=== PATIENT | male | born 1990 | race Caucasian/White ===

== ENCOUNTER 2017-01-20 18:21 | Emergency (ER) | payer OTHER ==
[2017-01-20 18:29] VITALS: BP 135/77; PULSE 74; TEMP 97.4; BMI 18.6
--- NOTE | 2017-01-20 19:59 | PDOC ---
History of Present Illness - General Chief Complaint: Psychiatric Stated Complaint: PANIC ATTACK Time Seen by Provider: 01/20/17 18:48 History Source: Patient Exam Limitations: No Limitations - History of Present Illness Initial Comments: PMD: Dr. Minnie Walker [phone] Pmhx: Asthma ("since I was born"/ albuterol inhaler) Allergies: NKDA Illicit drug use: Marijuana: last used a few minutes prior to yesterday's anxiety attack.) 26-year-old male with a history of asthma presents to the emergency department complaining of having two anxiety attacks since last week. Patient states at approximately 2 AM this morning, he was watching TV and "smoking a joint" (marijuana)when he decided to go to bed. Within 5 minutes after his marijuana use, he noticed that he was breathing rapidly. This "lasted no more than 2 minutes". The patient says he consciously slow down his breathing and took deeper breaths which subsided his anxiety attack. Similar episode happen 5 days ago. Again, within minutes after smoking now on a, he noticed his rapid breathing. This lasted for 5 minutes. With slowing down his breathing and breathing deeper, he noticed he was in control and his anxiety subsided. Patient states after breathing rapidly, he started experiencing tingling sensation around his lips and slight dizziness which went away when he slowed down his breathing. Patient adamantly denies being suicidal or homicidal. He does not have any suicidal ideation nor does he have a plan. Patient states he comes from a loving home with loving parents, family and friends alike. Maurice is also here because of a numbing sensation to his left index finger. He states he is able to feel his finger with excellent motor and sensitivity but it occurs when he is on his keyboard for a prolonged period of time. He denies any injuries. He claims he is often on his keyboard making music. Timing/Duration: yesterday Associated Symptoms: anxiety Past History - Past Medical History Allergies/Adverse Reactions: Allergies No Known Allergies Allergy (Verified 01/20/17 18:29) Home Medications: Ambulatory Orders NK [No Known Home Medication] 01/20/17 - Social History Smoking Status: Never smoked *Review of Systems - Review of Systems Able to Perform ROS?: Yes Comments:: 01/20/17 19:58 CONSTITUTIONAL: Absent: fever, chills, diaphoresis, generalized weakness, malaise, loss of appetite HEENT: Absent: rhinorrhea, nasal congestion, throat pain, throat swelling, difficulty swallowing, mouth swelling, ear pain, eye pain, visual Changes CARDIOVASCULAR: Absent: chest pain, loss of consciousness, palpitations, irregular heart rate, peripheral edema RESPIRATORY: Absent: cough, shortness of breath, dyspnea with exertion, orthopnea, wheezing, stridor, hemoptysis GASTROINTESTINAL: Absent: abdominal pain, abdominal distension, nausea, vomiting, diarrhea, constipation, melena, hematochezia GENITOURINARY: Absent: dysuria, frequency, urgency, hesitancy, hematuria, flank pain, genital pain MUSCULOSKELETAL: Absent: myalgia, arthralgia, joint swelling SKIN: Absent: rash, itching, pallor HEMATOLOGIC/IMMUNOLOGIC: Absent: easy bleeding, easy bruising, lymphadenopathy, frequent infections ENDOCRINE: Absent: unexplained weight gain, unexplained weight loss, heat intolerance, cold intolerance NEUROLOGIC: Absent: headache, focal weakness or paresthesias, dizziness, unsteady gait, seizure, mental status changes, bladder or bowel incontinence PSYCHIATRIC: +anxiety Absent: depression, suicidal or homicidal ideation, hallucinations. right index finer: numbness *Physical Exam - Vital Signs Last Vital Signs Temp Pulse Resp BP Pulse Ox 97.4 F L 74 18 135/77 100 01/20/17 18:25 01/20/17 18:25 01/20/17 18:25 01/20/17 18:25 01/20/17 18:25 - Physical Exam Comments: 01/20/17 20:06 GENERAL: Well developed, well nourished. Awake and alert. No acute distress. HEENT: Normocephalic, atraumatic. PERRLA, EOMI. No conjunctival pallor. Sclera are non- icteric. Moist mucous membranes. Oropharynx is clear. NECK: Supple. Full ROM. No JVD. Carotid pulses 2+ and symmetric, without bruits. No thyromegaly. No lymphadenopathy. CARDIOVASCULAR: Regular rate and rhythm. No murmurs, rubs, or gallops. Distal pulses are 2+ and symmetric. PULMONARY: No evidence of respiratory distress. Lungs clear to auscultation bilaterally. No wheezing, rales or rhonchi. ABDOMINAL: Soft. Non-tender. Non-distended. No rebound or guarding. No organomegaly. Normoactive bowel sounds. MUSCULOSKELETAL Normal range of motion at all joints. No bony deformities or tenderness. No CVA tenderness. EXTREMITIES: No cyanosis. No clubbing. No edema. No calf tenderness. SKIN: Warm and dry. Normal capillary refill. No rashes. No jaundice. NEUROLOGICAL: Alert, awake, appropriate. Cranial nerves 2-12 intact. No deficits to light touch and temperature in face, upper extremities and lower extremities. No motor deficits in the in face, upper extremities and lower extremities. Normoreflexic in the upper and lower extremities. Normal speech. Toes are down- going bilaterally. Gait is normal without ataxia. PSYCHIATRIC: Cooperative. Good eye contact. Appropriate mood and affect. Right hand: F.R.O.M. 2 point sensation intact to soft and dull (cotton vs pin) cap refill <2sec Right wrist F.R.O.M. 2+radial pulse 01/20/17 20:40 EKG; NSR at [address] elevation No ectopy Plan - Order(s) Order(s): Orders Medication Instructions Recorded NK [No Known Home Medication] 01/20/17 *DC/Admit/Observation/Transfer Diagnosis at time of Disposition: Numbness of finger, Anxiety - Discharge Dispostion Condition at time of disposition: Stable Admit: No - Referrals Referrals: Minnie Walker MD [Primary Care Provider] - Darrius Vicente MD [Staff Physician] - Gareth Infante MD [Staff Physician] - - Patient Instructions Printed Discharge Instructions: DI for Carpal Tunnel Syndrome, DI for Anxiety - - Adult Additional Instructions: Rest Follow up with your PMD, psychiatry and orthopedics. I have suggestions to each specialty listed on your discharge Avoid using any keyboards until you are seen by the orthopedic surgeon listed on your discharge or one of your choice. Be sure to take nice slow deep breaths when you notice you're experiencing rapid breathing. Avoid a or illicit drug use. Return back to the emergency department for severe/persistent or worsening symptoms, or any concerns.
--- NOTE | 2017-01-22 09:44 | EKG ---
Test Reason : Blood Pressure : / mmHG Vent. Rate : 064 BPM Atrial Rate : 064 BPM P-R Int : 116 ms QRS Dur : 088 ms QT Int : 376 ms P-R-T Axes : 082 070 054 degrees QTc Int : 387 ms NORMAL SINUS RHYTHM WITH SHORT NC POSSIBLE LEFT ATRIAL ENLARGEMENT BORDERLINE ECG NO PREVIOUS ECGS AVAILABLE Confirmed by MARY ELLEN WALLACE MD ([id number]) on 01/22/2017 9:44:06 AM Referred By: Confirmed By:MARY ELLEN WALLACE MD
== END 2017-01-20 20:46 | disposition home or self-care (01) ==
LOC: JER 18:21
DX: R20.0 Anesthesia of skin (principal); F41.0 Panic disorder [episodic paroxysmal anxiety]
CPT/HCPCS: 93005; 93010; 99282-25

== ENCOUNTER 2017-02-02 22:02 | Emergency (ER) | payer OTHER ==
[2017-02-02 22:25] VITALS: BP 119/65; PULSE 67; TEMP 98; BMI 18.6
--- NOTE | 2017-02-03 00:38 | PDOC ---
History of Present Illness - General Chief Complaint: Lightheaded Stated Complaint: LIGHTHEADED, PAIN Time Seen by Provider: 02/02/17 22:59 - History of Present Illness Initial Comments: 02/03/17 00:41 26-year-old male with a history of anxiety presents to the emergency department stating that he was hyperventilating earlier in the day which caused some lightheadedness and tingling around his mouth which has subsided since arriving to the emergency department. He denies headache, dizziness, visual disturbance, neck/back pains, chest pain, shortness of breath, abdominal pains, urinary symptoms, extremity numbness or tingling sensation. Patient states he is just a worrier and when he thinks, he ends up hyperventilating. Past History - Past Medical History Allergies/Adverse Reactions: Allergies Allergy/AdvReac Type Severity Reaction Status Date / Time No Known Allergies Allergy Verified 02/02/17 22:25 Home Medications: Ambulatory Orders NK [No Known Home Medication] 01/20/17 Asthma: Yes - Psycho/Social/Smoking Cessation Hx Anxiety: No Suicidal Ideation: No Smoking History: Never smoked Have you smoked in the past 12 months: No Information on smoking cessation initiated: No Hx Alcohol Use: No Drug/Substance Use Hx: No Substance Use Type: None Review of Systems - Review of Systems Able to Perform ROS?: Yes Comments:: 02/03/17 00:40 CONSTITUTIONAL: Absent: fever, chills, diaphoresis, generalized weakness, malaise, loss of appetite HEENT: Absent: rhinorrhea, nasal congestion, throat pain, throat swelling, difficulty swallowing, mouth swelling, ear pain, eye pain, visual Changes CARDIOVASCULAR: Absent: chest pain, loss of consciousness, palpitations, irregular heart rate, peripheral edema RESPIRATORY: Absent: cough, shortness of breath, dyspnea with exertion, orthopnea, wheezing, stridor, hemoptysis GASTROINTESTINAL: Absent: abdominal pain, abdominal distension, nausea, vomiting, diarrhea, constipation, melena, hematochezia GENITOURINARY: Absent: dysuria, frequency, urgency, hesitancy, hematuria, flank pain, genital pain MUSCULOSKELETAL: Absent: myalgia, arthralgia, joint swelling SKIN: Absent: rash, itching, pallor HEMATOLOGIC/IMMUNOLOGIC: Absent: easy bleeding, easy bruising, lymphadenopathy, frequent infections ENDOCRINE: Absent: unexplained weight gain, unexplained weight loss, heat intolerance, cold intolerance NEUROLOGIC: Absent: headache, focal weakness or paresthesias, dizziness, unsteady gait, seizure, mental status changes, bladder or bowel incontinence PSYCHIATRIC: Absent: anxiety, depression, suicidal or homicidal ideation, hallucinations. Is the patient limited B[place]ian proficient: No *Physical Exam - Vital Signs Last Vital Signs Temp Pulse Resp BP Pulse Ox 98.0 F 67 18 119/65 99 02/02/17 22:22 02/02/17 22:22 02/02/17 22:22 02/02/17 22:22 02/02/17 22:22 - Physical Exam Comments: 02/03/17 00:41 GENERAL: Well developed, well nourished. Awake and alert. No acute distress. HEENT: Normocephalic, atraumatic. PERRLA, EOMI. No conjunctival pallor. Sclera are non- icteric. Moist mucous membranes. Oropharynx is clear. NECK: Supple. Full ROM. No JVD. Carotid pulses 2+ and symmetric, without bruits. No thyromegaly. No lymphadenopathy. CARDIOVASCULAR: Regular rate and rhythm. No murmurs, rubs, or gallops. Distal pulses are 2+ and symmetric. PULMONARY: No evidence of respiratory distress. Lungs clear to auscultation bilaterally. No wheezing, rales or rhonchi. ABDOMINAL: Soft. Non-tender. Non-distended. No rebound or guarding. No organomegaly. Normoactive bowel sounds. MUSCULOSKELETAL Normal range of motion at all joints. No bony deformities or tenderness. No CVA tenderness. EXTREMITIES: No cyanosis. No clubbing. No edema. No calf tenderness. SKIN: Warm and dry. Normal capillary refill. No rashes. No jaundice. NEUROLOGICAL: Alert, awake, appropriate. Cranial nerves 2-12 intact. No deficits to light touch and temperature in face, upper extremities and lower extremities. No motor deficits in the in face, upper extremities and lower extremities. Normoreflexic in the upper and lower extremities. Normal speech. Toes are down- going bilaterally. Gait is normal without ataxia. PSYCHIATRIC: Cooperative. Good eye contact. Appropriate mood and affect. *DC/Admit/Observation/Transfer Diagnosis at time of Disposition: Hyperventilation syndrome, Anxiety - Discharge Dispostion Disposition: HOME Condition at time of disposition: Stable Admit: No - Referrals Referrals: Dai Mc [Staff Physician] - - Patient Instructions Printed Discharge Instructions: DI for Anxiety -- Adult Additional Instructions: Rest Return to the ER for severe/persistent/worsening symptoms
== END 2017-02-03 01:00 | disposition home or self-care (01) ==
LOC: JER 22:02 → SUPCPDRO 22:02 → JER 02-03 01:00
DX: R06.4 Hyperventilation (principal); F41.9 Anxiety disorder, unspecified
CPT/HCPCS: 99282-25

== ENCOUNTER 2017-04-26 17:42 | Emergency (ER) | payer OTHER ==
[2017-04-26 17:46] VITALS: BP 120/68; PULSE 63; TEMP 98; BMI 18.6
[2017-04-26] MEDS ORDERED: LIDOCAINE HCL 2% JELLY 10 ML CARTRIDGE ONE (18:57)
[2017-04-26] MEDS ORDERED: DIPHTH,PERTUSS(ACELL),TET 0.5 ML DISP.SYRIN IM ONE (19:19)
[2017-04-26] MEDS ORDERED: IBUPROFEN 600 MG TABLET (FP) PO ONE ×2 (19:21→19:22)
--- NOTE | 2017-04-26 19:35 | PDOC ---
History of Present Illness - General Chief Complaint: Injury Stated Complaint: FOOT INJURY Time Seen by Provider: 04/26/17 17:56 History Source: Patient Exam Limitations: No Limitations - History of Present Illness Initial Comments: 04/26/17 19:50 My Chief Complaint Rt. toe pain 04/26/17 19:51 History Of Present Illness: Patient is a 27-year-old male with a history of asthma and anxiety here today complaining of right toe pain after his toe was run over by a metal cart at work carrying beer. Patient reports that he felt pain and asked to go home. Patient noticed when he got home that toenail was bleeding at proximal aspect and had lifted. Patient does not know if he is up-to -date with tetanus will update today. Patient denies any numbness of his right arch toe or any other injury. 04/26/17 20:09 Occurred: reports: this afternoon Severity: reports: moderate (right large toe) Pain Location: reports: lower extremity (rt. large toe) Method of Injury: Yes: direct blow (by a wheel of a heavy metal cart at work carried beer ) Modifying Factors: improves with: None Loss of Consciousness: no loss of consciousness Associated Symptoms (Fall): other (rt. large toenail avulsion total ) Past History - Past Medical History Allergies/Adverse Reactions: Allergies Allergy/AdvReac Type Severity Reaction Status Date / Time No Known Allergies Allergy Verified 04/26/17 17:45 Home Medications: Ambulatory Orders Cephalexin Monohydrate [Keflex -] 500 mg PO Q8H #20 capsule 04/26/17 Asthma: Yes Psychiatric Problems: Yes (anxiety) - Psycho/Social/Smoking Cessation Hx Anxiety: No Suicidal Ideation: No Smoking History: Never smoked Have you smoked in the past 12 months: No Information on smoking cessation initiated: No Hx Alcohol Use: No Drug/Substance Use Hx: No Substance Use Type: None Review of Systems - Review of Systems Able to Perform ROS?: Yes Constitutional: No: Symptoms Reported HEENTM: No: Symptoms Reported Respiratory: No: Symptoms reported Cardiac (ROS): No: Symptoms Reported Musculoskeletal: Yes: Joint Pain (rt. large toe) Integumentary: Yes: Other Neurological: Yes: Other (rt. proximal nailbed avulsed at eponchium no bleeding currently ) *Physical Exam - Vital Signs Last Vital Signs Temp Pulse Resp BP Pulse Ox 98 F 63 17 120/68 10 L 04/26/17 17:44 04/26/17 17:44 04/26/17 17:44 04/26/17 17:44 04/26/17 17:44 Procedures - Consent Consent obtained: From Patient - Additional Procedures Progress: 04/26/17 20:12 Right large toe cleansed with Betadine and irrigated with normal saline 0.9% copious amounts; Digital block performed with 3 ml of lidocaine 1 % , needed to be repeated x1 for adequate relief of pain, no laceration of nailbed noted, nail reininserted into eponchium with no complications, steristrips applied, telfa, and coban. Medical Decision Making - Medical Decision Making 04/26/17 20:09 Patient is a 27-year-old male with a history of asthma and anxiety here today complaining of right toe pain after his toe was run over by a metal cart at work carrying beer. Patient reports that he felt pain and asked to go home. Patient noticed when he got home that toenail was bleeding at proximal aspect and had lifted. Patient does not know if he is up-to-date with tetanus will update today. Patient denies any numbness of his right arch toe or any other injury. Partially avulsed rt. proximal nailbed at eponchium PLAN: TDAP 0.5 ml IM now keflex 500 mg po now than every 8 hr for 7 days ibuprofen 600 mg po now procedure to reinsert toenail into eponchium performed with good results pt. to follow up with principal programmer tomorrow pt. instructed not to get toe wet crutches for ambulation, hard sole shoe given pt. to return here in 2 days for wound check xray right foot no fracture noted 04/26/17 20:16 04/26/17 20:22 04/26/17 20:24 *DC/Admit/Observation/Transfer Diagnosis at time of Disposition: Nailbed avulsion - Discharge Dispostion Disposition: HOME Condition at time of disposition: Stable - Prescriptions Prescriptions: Cephalexin Monohydrate [Keflex -] 500 mg PO Q8H #20 capsule - Referrals Referrals: Frank Dillard MD [Staff Physician] - - Patient Instructions Additional Instructions: return here in 2 days wound check will reevaluate to see when area could be wet Ibuprofen as needed as directed by senior sales associate for pain Follow up with principal programmer tommorrow or as soon as possible Use crutches and wear hard sole shoe on your right foot Return here if any redness of your right large toe or any fever immediately Today your tetanus diphtheria and pertussis vaccine was updated Patient voiced understanding of discharge instructions and all questions were answered - Post Discharge Activity Work/School Note: Back to Work
[2017-04-26] MEDS ORDERED: CEPHALEXIN MONOHYDRATE 500 MG CAPSULE (UD) PO ONE (20:11)
[2017-04-26] MEDS ORDERED: CEPHALEXIN MONOHYDRATE 500 MG CAPSULE (UD) ONE (20:14)
== END 2017-04-26 20:22 | disposition home or self-care (01) ==
LOC: JERFT 17:42
PROC: 0HDRXZZ Extraction of Toe Nail, External Approach (ICD-10-PCS; principal; 2017-04-26)
DX: S91.201A Unspecified open wound of right great toe with damage to nail, initial encounter (principal); W22.8XXA Striking against or struck by other objects, initial encounter; Y93.89 Activity, other specified; Y92.89 Other specified places as the place of occurrence of the external cause; Y99.0 Civilian activity done for income or pay
CPT/HCPCS: 73630-TC-RT; 90715; 99282-25

== ENCOUNTER 2017-04-28 16:25 | Emergency (ER) | payer OTHER ==
[2017-04-28 16:30] VITALS: BP 118/64; PULSE 63; TEMP 97.9; BMI 18.6
--- NOTE | 2017-04-28 19:12 | PDOC ---
Suture Removal/Wound Check HPI - History of Present Illness Chief Complaint: Revisit,Wound Recheck Stated Complaint: FOLLOW UP Time Seen by Provider: 04/28/17 18:09 History Source: Yes: Patient Exam Limitations: Yes: No Limitations Treated at: [facility] Date of Last ED visit: 04/26/17 - Previous ED Treatment Type of procedure performed on last visit: Yes: Other (PROXIMAL RIGHT LARGE TOENAIL PARTIALLY AVULSED) Tetanus Immunization: Yes: Given at last ED visit Antibiotics Prescribed: Yes - Onset of Previous Treatment Date of Occurence: 04/26/17 Past History - Past Medical History Allergies/Adverse Reactions: Allergies No Known Allergies Allergy (Verified 04/28/17 16:27) Home Medications: Ambulatory Orders Cephalexin Monohydrate [Keflex -] 500 mg PO Q8H #20 capsule 04/26/17 - Social History Smoking Status: Never smoked Suture Removal/Wound Check PE - Physical Exam Laceration/Wound Check Symptoms: reports: None, Pain Current Severity Level: None Maximum Severity Level: None Pain Localization: None Location of Laceration/Wound: right: Toe (RT. LARGE TOENAIL ) Pain Radiation: None Pain radiates to: right: Extremity(ies) (LARGE TOE) *Review of Systems - Review of Systems Able to Perform ROS?: Yes Constitutional: No: Symptoms Reported HEENTM: No: Symptoms Reported Respiratory: No: Symptoms reported Cardiac (ROS): No: Symptoms Reported ABD/GI: No: Symptoms Reported Musculoskeletal: Yes: Joint Pain (RT. LARGE TOENAIL AREA ) Integumentary: Yes: Other (RT. LARGE TOENAIL TACKED DOWN WITH STERISTRIPS AND DSD ) Neurological: No: Symptoms reported Procedures - Consent Consent obtained: From Patient - Additional Procedures Progress: 04/28/17 19:08 DRESSING large toe dressing removed toenail intact with no surrounding erythema. Cleanse with Betadine and normal saline 0.9% dry and Steri-Strips reattached to anchor proximal toenail and keep in place Medical Decision Making - Medical Decision Making 04/28/17 19:09 Here today for dressing change of right large toenail that was partially avulsed approximately. Patient has been compliant with antibiotics. Patient has been using crutches for ambulation. Patient reports tenderness to toe when touching it. Patient was unable to get to crowd controller they do not accept his insurance. Wound check right large toenail Plan: Continue antibiotics as previously ordered on 04/26/2017 Follow-up with crowd controller as soon as possible new crowd controller given or call the back of insurance card and asked for crowd controller and your plan Dressing changed to right large toenail *DC/Admit/Observation/Transfer Diagnosis at time of Disposition: Wound of toenail Qualifiers: Encounter type: initial encounter Qualified Code(s): S91.209A - Unspecified open wound of unspecified toe(s) with damage to nail, initial encounter - Discharge Dispostion Disposition: HOME Condition at time of disposition: Stable - Referrals Referrals: Julia Castro [Primary Care Provider] - Annalisa Garay MD [Staff Physician] - - Patient Instructions Additional Instructions: You may wash your right large toe however do not touch area or hip area you may apply Steri-Strip dressing around area and apply new dressing air out at night Continue taking antibiotics as previously prescribed Continue to take ibuprofen as needed as directed by email marketing executive for pain Follow-up with crowd controller as soon as possible if they do not take your insurance : CALL Back of your insurance card to find crowd controller and your insurance area Return to emergency room if symptoms worsen any redness around toenail or any fever or discharge from wound patient voiced understanding of discharge instructions and all questions were answered - Post Discharge Activity
== END 2017-04-28 19:48 | disposition home or self-care (01) ==
LOC: JER 16:25 → JERFT 16:25
DX: Z48.01 Encounter for change or removal of surgical wound dressing (principal); S91.201D Unspecified open wound of right great toe with damage to nail, subsequent encounter; W22.8XXD Striking against or struck by other objects, subsequent encounter
CPT/HCPCS: 99281-25

== ENCOUNTER 2022-05-18 22:42 | Emergency (ER) | payer SELFPAY ==
[2022-05-18 22:48] VITALS: BP 130/75; PULSE 64; RESP 18; TEMP 97; BMI 18.6
[2022-05-19 00:55] LABS: PH,URINE 5.5 (5.0-8.0); URINE APPEARANCE CLEAR; URINE BILIRUBIN NEGATIVE (NEGATIVE); URINE COLOR YELLOW; URINE GLUCOSE (UA) NEGATIVE (NEGATIVE); URINE KETONE NEGATIVE (NEGATIVE); URINE LEUK ESTERASE NEGATIVE (NEGATIVE); URINE NITRITE NEGATIVE (NEGATIVE); URINE PROTEIN NEGATIVE (NEGATIVE); URINE UROBILINOGEN 0.2 mg/dL (0.2-1.0)
== END 2022-05-19 02:38 | disposition home or self-care (01) ==
LOC: JER 22:42
DX: I86.1 Scrotal varices (principal)
CPT/HCPCS: 76870-TC; 81003; 99284-25